=== PATIENT | male | born 1995 | race Hispanic/Latino ===

== ENCOUNTER 2022-10-07 13:59 | Emergency (ER) | payer SELFPAY ==
[~2022-10-07] VITALS: Ht 160 cm; Wt 72.0 kg
[2022-10-07] VITALS (8 sets, daily range): BP systolic 99–126; BP diastolic 55–80
[2022-10-07 15:14] LABS: URINE BILIRUBIN - DIPSTICK NEGATIVE (NEGATIVE); URINE BLOOD DIPSTICK NEGATIVE (NEGATIVE); URINE COLOR YELLOW; URINE GLUCOSE - DIPSTICK NEGATIVE (NEGATIVE); URINE KETONE NEGATIVE (NEGATIVE); URINE LEUK ESTERASE NEGATIVE (NEGATIVE); URINE PROTEIN - DIPSTICK NEGATIVE (NEG-TRACE); URINE SPECIFIC GRAVITY >=1.030; URINE UROBILINOGEN - DIPSTICK 0.2 E.U./dL (0.2)
[2022-10-07 15:18] LABS: URINE NITRITE - DIPSTICK NEGATIVE (Negative)
[2022-10-07] MEDS ORDERED: TAMSULOSIN0.4 MG PO (15:27)
== END 2022-10-07 15:38 | disposition home or self-care (01) | DRG 700 ==
LOC: ED 13:59 → EDBD 13:59 → ED 14:48
PROVIDERS: Nurse Practitioner
DX: Z46.6 Encounter for fitting and adjustment of urinary device (principal)